=== PATIENT | male | born 1985 | race Asian ===

== ENCOUNTER 2016-05-27 00:47 | Emergency (ER) | payer OTHER ==
[~2016-05-27] VITALS: Ht 167.6 cm; Wt 63.5 kg
[2016-05-27 01:00] VITALS: BP 136/99
--- NOTE | 2016-05-27 01:08 | Emergency Room Report ---
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 He present with a needlestick to his left index finger occurred several hours ago. He was given heparin and the patient moved after the shot was given. He ended up Injecting himself. He cleaned his wound. Patient is an elderly gentleman admitted for COPD exacerbation. No history of HIV. No other complaint Allergies: Coded Allergies: No Known Allergies (Unverified , 05/27/16) Patient History Past Medical History: none Past Surgical History: none Pertinent Family History: none Social History: Denies: smoking Immunizations: UTD Reviewed Nursing Documentation: PMH: Agreed, PSxH: Agreed Nursing Documentation-PMH Hx Asthma: Yes Review of Systems Eye: Denies: blurred vision, eye pain ENT: Denies: ear pain, nose congestion, throat swelling Respiratory: Denies: cough, shortness of breath Cardiovascular: Denies: chest pain, palpitations Gastrointestinal: Denies: abdominal pain, diarrhea, nausea, vomiting Musculoskeletal: Denies: back pain, joint pain Skin: Denies: rash Neurological: Denies: headache, numbness Endocrine: Denies: increased thirst, increased urine Hematologic/Lymphatic: Denies: easy bruising All Other Systems: negative except mentioned in HPI Physical Exam Vital Signs Date Time Temp Pulse Resp B/P Pulse Ox O2 Delivery O2 Flow Rate FiO2 05/27/16 00:48 98.1 86 18 136/99 97 Room Air vitals normal. Sp02 EP Interpretation: reviewed, normal General Appearance: well appearing, no apparent distress, alert Head: normocephalic, atraumatic Eyes: bilateral eye EOMI, bilateral eye PERRL ENT: hearing grossly normal, normal pharynx Neck: full range of motion, supple, no meningismus Respiratory: chest non-tender, lungs clear, normal breath sounds Cardiovascular #1: regular rate, rhythm, no murmur Gastrointestinal: normal bowel sounds, non tender, no mass, no organomegaly, no bruit, non-distended Musculoskeletal: back normal, gait/station normal, normal range of motion, other - small puncture cresencio to left index finger. Psychiatric: mood/affect normal Skin: warm/dry Medical Decision Making Diagnostic Impression: Primary Impression: Needle stick injury of finger of left hand Qualified Codes: S61.239A - Puncture wound without foreign body of unspecified finger without damage to nail, initial encounter; W27.3XXA - Contact with needle (sewing), initial encounter ER Course Patient with a needlestick injury. Low risk for infection. Source patient HIV and hepatitis work done. We'll discharge home with followup to employee health. Last Vital Signs Date Time Temp Pulse Resp B/P Pulse Ox O2 Delivery O2 Flow Rate FiO2 05/27/16 00:48 98.1 86 18 136/99 97 Room Air Status: improved Disposition: HOME, SELF-CARE Condition: Stable Additional Instructions: Followup with employee health tomorrow. Blood draw for a rapid HIV and hepatitis panel done on source patient. Check results. Return if worse. BRUNA CHARLES M.D. May 27, 2016 01:08
[2016-05-27 01:11] VITALS: BP 136/99
== END 2016-05-27 01:11 | disposition home or self-care (01) ==
LOC: EMR 01:03
DX: S61.239A Puncture wound without foreign body of unspecified finger without damage to nail, initial encounter (principal); W27.3XXA Contact with needle (sewing), initial encounter; Y93.9 Activity, unspecified; Y99.0 Civilian activity done for income or pay; J44.9 Chronic obstructive pulmonary disease, unspecified; J45.909 Unspecified asthma, uncomplicated
CPT/HCPCS: 86703; 86705; 86709; 86803; 87340; 99282